=== PATIENT | male | born 1950 | race American Indian/Alaskan Native ===

== ENCOUNTER 2018-10-20 12:41 | Emergency (ER) | payer MEDICARE ==
[2018-10-20] MEDS ORDERED: NACL 0.9% 1000 ML 1,000 ML IV ONE ×2 (12:48→15:00)
--- NOTE | 2018-10-20 12:48 | Emergency Department Report ---
- General Stated complaint: WEAKNESS Time Seen by Provider: 10/20/18 12:42 - History of Present Illness Initial comments: pt is a 68-year-old male that presented to emergency room for dizziness and weakness 3 days. Patient states he went to his primary care's office for the same complaints and was sent here for further evaluation and treatment. Patient states that he's also had abdominal pain in his bilateral lower abdomen for 5 days. Patient states she has had a bowel movement for 5 days as well. He states he has abdominal pain is a 7 out of 10. Patient states it is worse with palpation and movement and exertion. Patient states his abdominal pain is better with rest. Patient states the dizziness and weakness better with laying flat and rest. Patient states his dizziness weakness or foot exertion. Patient denies nausea vomiting. Patient denies fever chills. Patient denies syncope or visual changes. Patient states his weakness and dizziness are worsening. Patient states she has a history of high blood pressure, diabetes, high cholesterol and an insulin dependence. MD Complaint: generalized weakness -: Sudden Location: other (abdominal pain) Severity: severe Severity scale (0 -10): 7 Consistency: constant Improves with: rest Worsens with: movement, exertion Associated Symptoms: denies: chest pain, confusion, dark stools, diaphoresis, dysuria, easy bruising, fever/chills, headaches, loss of appetite, nausea/vomiting, myalgias, rash, shortness of breath, syncope - Related Data Previous Rx's Medication Instructions Recorded Last Taken Type Meclizine [Antivert] 12.5 mg PO BID PRN #12 tablet 10/20/18 Unknown Rx Allergies Allergy/AdvReac Type Severity Reaction Status Date / Time No Known Allergies Allergy Unverified 10/20/18 12:54 ED Review of Systems ROS: Stated complaint: WEAKNESS Other details as noted in HPI Constitutional: weakness. denies: chills, fever Eyes: denies: eye pain, eye discharge, vision change ENT: denies: ear pain, throat pain Respiratory: denies: cough, shortness of breath, wheezing Cardiovascular: denies: chest pain, palpitations Endocrine: no symptoms reported Gastrointestinal: abdominal pain, constipation. denies: nausea, diarrhea Genitourinary: denies: urgency, dysuria Musculoskeletal: denies: back pain, joint swelling, arthralgia Skin: denies: rash, lesions Neurological: weakness. denies: headache, paresthesias Psychiatric: denies: anxiety, depression Hematological/Lymphatic: denies: easy bleeding, easy bruising ED Past Medical Hx - Past Medical History Previous Medical History?: Yes Hx Hypertension: Yes Hx Diabetes: Yes - Surgical History Past Surgical History?: No - Family History Family history: no significant - Social History Smoking Status: Never Smoker Substance Use Type: None - Medications Home Medications: Home Medications Medication Instructions Recorded Confirmed Last Taken Type Meclizine [Antivert] 12.5 mg PO BID PRN #12 tablet 10/20/18 Unknown Rx ED Physical Exam - General Limitations: No Limitations General appearance: alert, in no apparent distress - Head Head exam: Present: atraumatic, normocephalic - Eye Eye exam: Present: normal appearance - ENT ENT exam: Present: mucous membranes moist - Neck Neck exam: Present: normal inspection - Respiratory Respiratory exam: Present: normal lung sounds bilaterally. Absent: respiratory distress, wheezes, rales, rhonchi - Cardiovascular Cardiovascular Exam: Present: regular rate, normal rhythm. Absent: systolic mu rmur, diastolic murmur, rubs, gallop - GI/Abdominal GI/Abdominal exam: Present: soft, distended, tenderness (bilateral lower quadrant tenderness to palpation), normal bowel sounds - Rectal Rectal exam: Present: deferred - Extremities Exam Extremities exam: Present: normal inspection - Back Exam Back exam: Present: normal inspection - Neurological Exam Neurological exam: Present: alert, oriented X3 - Psychiatric Psychiatric exam: Present: normal affect, normal mood - Skin Skin exam: Present: warm, dry, intact, normal color. Absent: rash - Assessment Assessment Interval: Baseline - Level of Consciousness 1a. Level of Consciousness: alert/keenly responsive - LOC Questions 1b. LOC Questions: answers both correctly - LOC Command 1c. LOC Commands: performs tasks correctly - Best Gaze 2. Best Gaze: normal - Visual 3. Visual: no visual loss - Facial Palsy 4. Facial Palsy: normal symmetrical movement - Motor Arm 5a. Motor Arm Left: no drift 5b. Motor Arm Right: no drift - Motor Leg 6a. Motor Leg Left: no drift 6b. Motor Leg Right: no drift - Limb Ataxia 7. Limb Ataxia: absent - Sensory 8. Sensory: normal - Best Language 9. Best Language: no aphasia - Dysarthria 10. Dysarthria: normal - Extinction and Inattention 11. Extinction/Inattention: no abnormality - Scoring Total Score: 0 Stroke Severity: No Stroke Symptoms ED Course Vital Signs 10/20/18 10/20/18 10/20/18 12:47 12:52 12:55 Temperature 97.4 F L Pulse Rate 64 Respiratory 15 18 Rate Blood Pressure 121/77 [Right] O2 Sat by Pulse 98 98 97 Oximetry 10/20/18 10/20/18 10/20/18 13:00 13:16 13:30 Temperature Pulse Rate Respiratory Rate Blood Pressure [Right] O2 Sat by Pulse 94 97 96 Oximetry 10/20/18 10/20/18 10/20/18 13:58 14:00 14:16 Temperature Pulse Rate Respiratory Rate Blood Pressure [Right] O2 Sat by Pulse 100 99 97 Oximetry 10/20/18 10/20/18 10/20/18 14:30 14:46 15:00 Temperature 98.2 F Pulse Rate 71 Respiratory 16 Rate Blood Pressure 122/81 [Right] O2 Sat by Pulse 99 97 100 Oximetry 10/20/18 10/20/18 10/20/18 15:16 15:30 15:46 Temperature Pulse Rate Respiratory Rate Blood Pressure [Right] O2 Sat by Pulse 100 98 100 Oximetry 10/20/18 10/20/18 10/20/18 16:00 16:15 16:30 Temperature Pulse Rate Respiratory Rate Blood Pressure [Right] O2 Sat by Pulse 99 99 98 Oximetry 10/20/18 10/20/18 10/20/18 16:46 17:00 17:12 Temperature 98.4 F Pulse Rate 77 Respiratory 13 Rate Blood Pressure 123/74 [Right] O2 Sat by Pulse 98 96 98 Oximetry 10/20/18 17:58 Temperature 98.1 F Pulse Rate 71 Respiratory 16 Rate Blood Pressure 124/74 [Right] O2 Sat by Pulse 99 Oximetry - Reevaluation(s) Reevaluation #1: Patient ambulatory without problem but states he still feels weak and dizzy but states he is feeling a little bit better. Patient's urine very concentrated. UA will be sent. Patient will be given another liter of fluids. 10/20/18 15:01 Discussed all results with patient. He would benefit the hospitalist service. Patient ambulated again and he states he is still feeling weak and dizzy and would desire to stay one night in the hospital. I will discuss this with the hospitalist. 10/20/18 16:12 - Consultations Consultation #1: Hospitalist consulted for admission. Hospitalist to admit patient. 10/20/18 16:20 ED Medical Decision Making - Lab Data Result diagrams: 10/20/18 13:11 10/20/18 13:11 - EKG Data -: EKG Interpreted by Me EKG shows normal: sinus rhythm, axis, intervals, QRS complexes, ST-T waves Rate: normal - Radiology Data Radiology results: report reviewed CT ABDOMEN PELVIS WITHOUT CONTRAST: HISTORY: abdominal pain. COMPARISON: none. TECHNIQUE: Helical CT in 1.25mm intervals without IV contrast. Sagittal and coronal reconstructions. FINDINGS: Lung bases: Normal. Liver: Normal. Biliary system: Normal. Pancreas: Normal. Spleen: Normal. Kidneys/ureters/bladder: Normal. Adrenal glands: Normal. Aorta: Normal. Intestines: Normal. Appendix: Normal. Pelvic viscera: Normal. Ascites: None. Adenopathy: None. Musculoskeletal: Moderate thoracolumbar spondylosis. IMPRESSION: Unremarkable CT scan of the abdomen and pelvis without contrast. CT HEAD WITHOUT CONTRAST: HISTORY: Lightheadedness, dizziness. TECHNIQUE: Sequential 2.5mm CT images. COMPARISON: none. FINDINGS: Cerebral Parenchyma: Within normal limits. Cerebellum: Within normal limits. Brainstem: Within normal limits. Ventricles: Normal. Sella: Normal. Extra-axial spaces: Normal. Basal Cisterns: Normal. Intracranial Hemorrhage: None. Midline Shift: None. Calvarium: Normal. Sinuses: Normal. Mastoid Air Cells: Normal. Visualized Orbits: Normal. IMPRESSION: Cranial CT scan within normal limits. - Medical Decision Making he is a 68-year-old male that presents to emergency room with complaints of weakness and dizziness and abdominal pain and constipation. Patient had labs done which were unremarkable. Patient's EKG was normal. Patient's head CT and abdominal CT were normal. Clinical findings consistent with dehydration. S he'll respond well to therapy. Patient states he hasn't felt like he can go home because he lives by himself. - Differential Diagnosis dehydration. Abdominal pain. Constipation. Dizziness/weakness. Critical care attestation.: If time is entered above; I have spent that time in minutes in the direct care of this critically ill patient, excluding procedure time. ED Disposition Clinical Impression: Dizziness, Weakness, Dehydration Abdominal pain Qualifiers: Abdominal location: lower abdomen, unspecified Qualified Code(s): R10.30 - Lower abdominal pain, unspecified Constipation Qualifiers: Constipation type: slow transit constipation Qualified Code(s): K59.01 - Slow transit constipation Disposition: OP ADMIT IP TO THIS HOSP Is pt being admited?: Yes Does the pt Need Aspirin: No Condition: Serious Instructions: Constipation (ED), Dehydration (ED), High Fiber Diet (ED), Weakness (ED), Abdominal Pain (ED) Prescriptions: Meclizine [Antivert] 12.5 mg PO BID PRN #12 tablet PRN Reason: Vertigo [facility] [Primary Care Provider] - 3-5 Days Time of Disposition: 16:20
[2018-10-20 13:33] LABS: Basophils % (Auto) 0.6 % (0.0-1.8); Eosinophils % (Auto) 0.4 % (0.0-4.3); Hematocrit 45.2 % (35.5-45.6); Hemoglobin 14.9 gm/dl (11.8-15.2); Lymphocytes # (Auto) 2.5 K/mm3 (1.2-5.4); Lymphocytes % (Auto) 32.7 % (13.4-35.0); Mean Corpuscular HGB Conc 33 % (32-34); Mean Corpuscular Volume 89 fl (84-94); Monocytes # (Auto) 0.6 K/mm3 (0.0-0.8); Monocytes % (Auto) 8.2 % (0.0-7.3); Platelet Count 175 K/mm3 (140-440); Red Blood Count 5.07 M/mm3 (3.65-5.03); Red Cell Distribution Width 15.7 % (13.2-15.2)
[2018-10-20 13:54] LABS: Alanine Aminotransferase 23 units/L (7-56); Albumin 3.7 g/dL (3.9-5); BUN/Creatinine Ratio 29; Blood Urea Nitrogen 20 mg/dL (9-20); Calcium 9.4 mg/dL (8.4-10.2); Hemolysis Index 19
[2018-10-20 13:56] LABS: Bilirubin,Direct < 0.2 mg/dL (0-0.2)
--- NOTE | 2018-10-20 14:10 | Cat Scan Report ---
CT HEAD WITHOUT CONTRAST: HISTORY: Lightheadedness, dizziness. TECHNIQUE: Sequential 2.5mm CT images. COMPARISON: none. FINDINGS: Cerebral Parenchyma: Within normal limits. Cerebellum: Within normal limits. Brainstem: Within normal limits. Ventricles: Normal. Sella: Normal. Extra-axial spaces: Normal. Basal Cisterns: Normal. Intracranial Hemorrhage: None. Midline Shift: None. Calvarium: Normal. Sinuses: Normal. Mastoid Air Cells: Normal. Visualized Orbits: Normal. IMPRESSION: Cranial CT scan within normal limits.
--- NOTE | 2018-10-20 15:08 | Cat Scan Report ---
CT ABDOMEN PELVIS WITHOUT CONTRAST: HISTORY: abdominal pain. COMPARISON: none. TECHNIQUE: Helical CT in 1.25mm intervals without IV contrast. Sagittal and coronal reconstructions. FINDINGS: Lung bases: Normal. Liver: Normal. Biliary system: Normal. Pancreas: Normal. Spleen: Normal. Kidneys/ureters/bladder: Normal. Adrenal glands: Normal. Aorta: Normal. Intestines: Normal. Appendix: Normal. Pelvic viscera: Normal. Ascites: None. Adenopathy: None. Musculoskeletal: Moderate thoracolumbar spondylosis. IMPRESSION: Unremarkable CT scan of the abdomen and pelvis without contrast.
[2018-10-20 15:09] LABS: Bilirubin,Urine NEG (Negative); Blood,Urine NEG (Negative); Color,Urine Yellow (Yellow); Mucus,Urine FEW /HPF; Protein,Urine <15 mg/dL mg/dL (Negative); Urobilinogen,Urine < 2.0 mg/dL (<2.0)
[2018-10-20 16:27] LABS: Creatine Kinase MB 9.8 ng/mL (0.0-4.0)
--- NOTE | 2018-10-20 16:36 | Event Note ---
Date: 10/20/18 Comes in for Dizziness and unsteady walking Recurrent since 2 years Has seen ENT doctor two years ago Exam nl Able to walk Slightly unsteadt DDx BPPV and Acute Labrynthitis Meclizine 12.5 po bid prn Referral to Dr Tanvir Suggs
[2018-10-20 18:00] VITALS: BP 124/74
== END 2018-10-20 17:58 | disposition admitted as inpatient to this hospital (09) ==
LOC: ED 12:41
DX: E86.0 Dehydration (principal); K59.01 Slow transit constipation
CPT/HCPCS: 36415; 70450; 74176; 80048; 80076; 81001; 82140; 82550; 82553; 83690; 84484; 85025; 93005; 93010; 96360; 96361; 99285; J7030